=== PATIENT | male | born 1985 | race Caucasian/White ===

== ENCOUNTER 2018-11-10 02:55 | Emergency (ER) | payer OTHER, MEDICAID ==
[2018-11-10 03:11] VITALS: BP 135/81
--- NOTE | 2018-11-10 03:15 | EDPHY ---
H & P Stated Complaint: L FOURTH FINGER SMASHED, AT WORK Time Seen by Provider: 11/10/18 03:15 HPI/ROS: HPI CHIEF COMPLAINT: Left ring finger injury at work. HISTORY OF PRESENT ILLNESS: Very pleasant 33-year-old male otherwise healthy, presents emergency room with discomfort to his left ring finger. 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 He has discomfort to the left ring finger. No laceration. He is neurovascularly intact and has full range of motion able to move this appropriately. Denies any other areas of injury. Complains of pain to the 4th digit middle aspect of this dorsal side. Past Medical History: Denies medical history Past Surgical History: Denies surgical history Social History: Denies drugs alcohol tobacco. Works at [employer]. Family History: Noncontributory ROS REVIEW OF SYSTEMS: 10 Systems were reviewed and negative with the exception of the elements mentioned in the history of present illness. Exam Constitutional triage nursing summary reviewed, vital signs reviewed, awake/ alert. Eyes normal conjunctivae and sclera, EOMI, PERRLA. HENT normal inspection, atraumatic, moist mucus membranes, no epistaxis, neck supple/ no meningismus, no raccoon eyes. Respiratory clear to auscultation bilaterally, normal breath sounds, no respiratory distress, no wheezing. Cardiovascular rate normal, regular rhythm, no murmur, no edema, distal pulses normal. Gastrointestinal soft, non-tender, no rebound, no guarding, normal bowel sounds, no distension, no pulsatile mass. Genitourinary no CVA tenderness. Musculoskeletal left hand: Neurovascular intact good distal pulse, good cap refill, his 4th digit he is able to fully flex and extended. Good cap refill, sensation intact. No significant visible trauma on exam. No laceration. no midline vertebral tenderness, full range of motion, no calf swelling, no tenderness of extremities, no meningismus, good pulses, neurovascularly intact. Skin pink, warm, & dry, no rash, skin atraumatic. Neurologic awake, alert and oriented x 3, AAOx3, moves all 4 extremities equally, motor intact, sensory intact, CN II-XII intact, normal cerebellar, normal vision, normal speech. Psychiatric normal mood/affect. Heme/Lymph/Immune no lymphadenopathy. Differential Diagnosis: Includes but is not limited to in a particular order left finger contusion, left finger fracture, left finger sprain, soft tissue injury Medical Decision Making: Plan for this patient x-ray left 4th digit. Re-evaluation: Most likely placed in a finger splint for comfort. X-ray of the left 4th digit reviewed. Negative for acute fracture. Image interpreted by myself. Patient has been placed in a finger splint for comfort. Immobilization. Recommend anti-inflammatory pain medicine and ice. If He continues to have pain recommend following up with Hand surgery. Return precautions discussed with the patient. Source: Patient - Personal History Current Tetanus Diphtheria and Acellular Pertussis (TDAP): Yes - Medical/Surgical History Hx Asthma: No Hx Chronic Respiratory Disease: No Hx Diabetes: No Hx Cardiac Disease: No Hx Renal Disease: No Hx Cirrhosis: No Hx Alcoholism: No Hx HIV/AIDS: No Hx Splenectomy or Spleen Trauma: No Other PMH: APPY 2013 - Social History Smoking Status: Current every day smoker Constitutional: Initial Vital Signs Temperature (C) 37.0 C 11/10/18 03:09 Heart Rate 83 11/10/18 03:09 Respiratory Rate 16 11/10/18 03:09 Blood Pressure 135/81 H 11/10/18 03:09 O2 Sat (%) 95 11/10/18 03:09 O2 Delivery Mode Room Air Allergies/Adverse Reactions: clarithromycin [From Biaxin] Allergy (Verified 11/10/18 03:07) lorazepam [From Ativan] Allergy (Verified 11/10/18 03:07) Home Medications: Medication Instructions Recorded Lexapro 11/10/18 Departure - Departure Disposition: Home, Routine, Self-Care Clinical Impression: Finger contusion Condition: Good Instructions: Contusion in Adults (ED), Hematoma (ED) Additional Instructions: 1. Recommend ice 2. Recommend anti-inflammatory pain medicine 3. Finger splint for comfort. 4. Follow up with Hand surgery. Referrals: CAYDEN FIGUEROA [Other] - As per Instructions Darinel Bell MD [Medical Doctor] - As per Instructions
== END 2018-11-10 03:51 | disposition home or self-care (01) ==
DX: S60.042A Contusion of left ring finger without damage to nail, initial encounter (principal); W22.8XXA Striking against or struck by other objects, initial encounter; Y99.0 Civilian activity done for income or pay; F17.200 Nicotine dependence, unspecified, uncomplicated
CPT/HCPCS: L3925